=== PATIENT | male | born 1980 | race Caucasian/White ===

== ENCOUNTER 2021-02-12 10:17 | Inpatient (IN) ==
--- NOTE | 2021-01-29 11:18 | Anesthesiology Consultation ---
Date of Service January 29, 2021 Assessment & Plan (1) Encounter for pre-operative examination: COVID screening: Per assessment on 01/29: Travel screen negative, no known COVID- 19 positive contacts or current COVID-19 related symptoms. Surgeon arranging preop COVID testing. Awaiting results. Chart Review Chart Review: Acceptable Risk for Surgery and Patient seen in Pre Admission Testing Teaching & Discussion Pre-Anesthesia Teaching/Discussion Notes: Instructed NPO after midnight before surgery,except medications with 15 cc of water. Medication instructions provided according to the PAT guidelines. History Surgery Operation Date: 02/12/21 10:35 Proposed Procedures p L5-S1 Decompression Fusion, Spinal Cord Monitoring - Vikas Moon, Height/Weight Height: 5 ft 6.5 in Weight: 73.9 kg Allergies Allergy/AdvReac Type Severity Reaction Status Date / Time No Known Allergies Allergy Unverified 01/26/21 09:41 Medications Home Medications Medication Instructions Recorded Confirmed Last Taken No Known Home Medications 08/01/19 01/26/21 Unknown Past Medical History Medical History DDD (degenerative disc disease) Lumbar GERD (gastroesophageal reflux disease) controlled, rare Exercise / Class Metabolic Activity II 4-5 Yardwork/Stairs/Walk up hill (one FS (no CP, no SOB)) Past Family History Family History Other Hypertension Denies family history of Diabetes Past Surgical History Surgical History Hx of arthroscopy of left knee Hx of wisdom tooth extraction Past Anesthesia History No Hx of Anesthesia Complications and No Family Hx of Anesthesia Complications History of PONV No Hx of PONV and No Hx of Motion Sickness Social History Smoking Status: Never smoker Do You Dip or Chew Tobacco: Yes (1 can/2 days > advised none DOS) Hx Alcohol Use: Yes alcohol intake frequency: a few times a month Hx Substance Use: No substance use type: does not use Review of Systems Patient denies chest pain, shortness of breath, dyspnea on exertion, fever, chills, cough, wheezing, palpitations. Physical Exam Vital Signs VITALS BP 120/81 P 91 TEMP 98.8 SP02 96%RA RESP 16 PHYSICAL Full cervical extension range of motion. Full TMJ range of motion. TMD 3 finger breaths Mallampati Score 2 Dentition: intact, + crown Lungs: clear throughout to auscultation Cardiac: regular rate and rhythm, no murmurs noted Spine: normal Extremities: no edema + large andrew (pt advised recommendation to trim/shave prior to surgery. Patient voiced understanding but does not wish to shorten andrew much. Advised patient that anesthesiologist will discuss further AM DOS and may require shortening/shaving of andrew prior to proceeding at their discretion. Patient voiced understanding). Lab Results Anesthesia Preop Results Results Anesthesia Widget: WBC 5.97 K/uL (4.8-10.8) 01/29/21 Hgb 14.9 g/dL (14.0-18.0) 01/29/21 Hct 44.1 % (42-52) 01/29/21 Plt 273 K/uL (130-400) 01/29/21 Na 142 mmol/L (136-145) 01/29/21 K 4.1 mmol/L (3.5-5.1) 01/29/21 Cl 110 mmol/L (98-107) H 01/29/21 CO2 25 mmol/L (21-32) 01/29/21 BUN 12 mg/dl (7-18) 01/29/21 Creat 0.89 mg/dl (0.6-1.4) 01/29/21 Glucose Level 101 mg/dl (70-99) H 01/29/21 PT 10.3 Seconds (9.0-12.0) 01/29/21 PTT 24.2 Seconds (21.0-31.0) 01/29/21 INR 1.0 (0.9-1.1) 01/29/21 Urine Color Yellow 01/29/21 Urine Appearance Clear (Clear) 01/29/21 Urine pH 5.5 (4.5-7.5) 01/29/21 Urine Specific [place] 1.021 (1.000-1.030) 01/29/21 Urine Protein Negative (Negative) 01/29/21 Urine Glucose (UA) Negative (Negative) 01/29/21 Urine Ketones Negative (Negative) 01/29/21 Urine Blood Negative (Negative) 01/29/21 Urine Nitrite Negative (Negative) 01/29/21 Urine Bilirubin Negative (Negative) 01/29/21 Urine Urobilinogen Negative (Negative) 01/29/21 Urine Leukocyte Esterase Negative (Negative) 01/29/21 Blood Type B Positive 01/29/21 Antibody Screen NEGATIVE 01/29/21 Testing Electrocardiogram Date: 01/29/21 NSR at 78bpm. unconfirmed report. Chest X-Ray Date: 01/29/21 Findings: + NAD
[~2021-02-12 10:17] MED LIST: ACETAMINOPHEN 500 MG TAB PO SCH; CeleBREX 200 MG CAP PO SCH; GABAPENTIN 900 MG DOSE PO SCH; LR 15ML/HR IV SCH; ceFAZolin 1000MG 1,000 MG/7.5 ML SYR IV SCH
--- NOTE | 2021-02-12 11:38 | History & Physical Bridge Note ---
Date of Service February 12, 2021 History & Physical Bridge Note I have examined the patient, reviewed the History & Physical and in the interval since the performance of the History & Physical I have noted the following changes of clinical significance: no changes noted
--- NOTE | 2021-02-12 11:39 | History & Physical Report ---
Date of Service February 12, 2021 Assessment & Plan (1) Lumbar disc herniation with radiculopathy: Admission and Anticipated Discharge Date Admission Date: L5-S1 decompression fusion History of Present Illness Chief Complaint: Back and bilateral leg pain Primary Care Provider: Justin Francisco DO This is a 40-year-old male who presents with chronic persistent back and leg pain. Failing since course of nonoperative care is here for surgical intervention. Allergies Allergy/AdvReac Type Severity Reaction Status Date / Time No Known Allergies Allergy Unverified 02/12/21 10:41 Home Medications Medication Instructions Recorded Confirmed Type No Known Home Medications 08/01/19 02/12/21 History Past Med/Surg History Medical History DDD (degenerative disc disease) Lumbar GERD (gastroesophageal reflux disease) controlled, rare Surgical History Hx of arthroscopy of left knee Hx of wisdom tooth extraction Family History Other Hypertension Denies family history of Diabetes Social History Smoking Status: Never smoker Second Hand Exposure: No; Do You Dip or Chew Tobacco: Yes (1 can/2 days > advised none DOS); Tobacco Cessation Education Requested by Patient: No Hx Alcohol Use: Yes Hx Substance Use: No Preferred Language: Nigerian Communication Ability: Effective Supervisor Treating And Pumping Required: No Beliefs That Will Affect Care: None Current Living Situation: Parent Other Information That Helps Us Care for You: No Feels Safe at Home: Yes Safety Concerns: Feels Safe At This Time Physical Exam Physical Exam: Patient is alert and oriented Heart regular in rhythm Lungs clear to auscultation Results & Data ([facility]) Vital Signs (Past 12 Hours) Vital Signs Temp Pulse Resp BP Pulse Ox 02/12/21 10:44 37.2 C 70 16 120/76 96
[2021-02-12] MEDS ORDERED: HYDROmorphone INJ 1 MG/ML SYRINGE IV PRN ×2 (11:42→15:32)
[2021-02-12] MEDS ORDERED: ONDANSETRON INJ 2 MG/ML 2 ML VIAL IV PRN ×2 (11:42→15:32)
[2021-02-12] MEDS ORDERED: ATROPINE SULFATE 0.1 MG/ML 10ML SYR IV PRN (11:42)
[2021-02-12] MEDS ORDERED: MIDAZOLAM HCL 1 MG/ML 2ML VIAL ONE (11:58)
[2021-02-12] MEDS ORDERED: ONDANSETRON INJ 2 MG/ML 2 ML VIAL ONE ×2 (11:58→13:40)
[2021-02-12] MEDS ORDERED: DEXAMETHASONE SOD INJ 4 MG/ML VIAL ONE (11:58)
[2021-02-12] MEDS ORDERED: ROCURONIUM BROMIDE 10 MG/ML 5 ML VIAL IV ONE (11:58)
[2021-02-12] MEDS ORDERED: PROPOFOL IV EMULSION 10 MG/ML 20 ML VIAL IV ONE (11:58)
[2021-02-12] MEDS ORDERED: LIDOCAINE 2% 2 ML VIAL/AMP(20MG/ML) INFIL ONE (11:58)
[2021-02-12] MEDS ORDERED: fentaNYL citrate 100 MCG/2 ML VIAL ONE (11:59)
[2021-02-12] MEDS ORDERED: BUPIVACAINE/EPINEPHRINE 0.5% MPF 1:200,000 30 ML VIAL ONE (12:00)
[2021-02-12] MEDS ORDERED: HYDROmorphone INJ 2 MG/ML SYR/VIAL ONE (12:29)
[2021-02-12] MEDS ORDERED: ceFAZolin 1000MG 1,000 MG/7.5 ML SYR IV ONE (12:35)
[2021-02-12] MEDS ORDERED: FLOSEAL HEMOSTATIC MATRIX 10ML TOP ONE (12:44)
--- NOTE | 2021-02-12 13:45 | Operative Report ---
Post Operative Report Pre & Post Diagnosis Operation Date: 02/12/21 11:45 Pre-Op Diagnosis: Intervertebral Disc Disorders with Radiculopathy Post-Op Diagnosis: Intervertebral Disc Disorders with Radiculopathy I identified the patient and participated in the time-out.: Yes Procedure Operation Date: 02/12/21 11:45 Actual Procedures #1 lumbar decompression with bilateral medial facetectomies and foraminotomies L4-5 and L5-S1. #2 posterior spinal fusion L5-S1. #3 placed posterior instrumentation L5-S1. #4 interbody fusion L5-S1. #5 placement peek cage 13 x 26 mm at L5-S1. #6 placement of locally harvested morselized autograft in the posterior lateral gutters. #7 placement of I factor combined with Vitoss in the interbody space and posterior gutters. Surgeon Vikas Moon, DO Grated [employer] Arsalan Rodriguez Estimated Blood Loss 100 Findings Consistent with Post-Op Diagnosis Specimens None Indications This is a 40-year-old male who presents above-mentioned diagnosis and failed extensive course of nonoperative care is here for the above-mentioned procedure. Description of Procedure Patient was met with identified informed consent obtained. Patient was then taken to the operative suite underwent ablation placed in a prone position the [place] table top Donnie frame. All bony prominences well-padded eyes inspected to ensure no external pressure placed upon the. This point the lumbar spine was prepped and draped no sterile fashion. Sharp dissection with the assistance of Bovie cautery performed down to and exposing the lamina and transverse process of L5 and sacral ala bilaterally. From caudal cephalad fashion complete laminectomy L5 partial laminectomy of L4 and bilateral medial facetectomies and foraminotomies addressing all neural compression. Pedicle screws then placed in L5 and S1 levels bilaterally with assistance of fluoroscopy the proper sized lalo placed. By way of a transforaminal portion right complete discectomy was performed endplates curetted to subcortical any bone and a 13 x 26 mm peek cage filled I factor tapped in position. The rods were then locked in final position bilaterally. The transverse processes of L5 and sacral ala burred to subcortical being bone. I factor combined with vitoss and locally harvested morselized autograft placed in the posterior gutters. 15 round CALVIN drain inserted. The incision was then closed with 1 Vicryl to fascia 2-0 Vicryl subcutaneously and 4 Monocryl for final skin closure. Steri-Strip sterile dressings placed. Patient waken taken PACU stable condition. Please note spinal cord monitoring was utilized at the procedure no changes noted. Karis bourne was present at the entire surgery while the patient positioning complex portions of the surgery and final skin closure. I attest to the content of the Intraoperative Record and any orders documented therein. Any exceptions are noted below.
--- NOTE | 2021-02-12 14:12 | Fluoroscopy Report ---
FL lumbar spine 2-3V CLINICAL HISTORY: L5-S1 DECOMPRESSION/FUSION COMPARISON STUDY: None. FLUOROSCOPY TIME: 26 seconds. FINDINGS: 2 fluoroscopic spot images of the lumbar spine demonstrate posterior decompression fusion a t L5-S1 with pedicle screws and rods. Disc spacers in place. IMPRESSION: Fluoroscopy provided for L5-S1 posterior decompression and fusion. ACT 112: Negative or not required by law. Electronically signed by: Berhane Diaz M.D. 02/12/2021 2:10 PM
--- NOTE | 2021-02-12 14:29 | Anesthesiology Progress Note ---
Date of Service February 12, 2021 Anesthesia Post Procedure Vital Signs Vital Signs: Temp Pulse Resp BP Pulse Ox 02/12/21 10:44 37.2 C 70 16 120/76 96 Transfer of Care Handoff Completed per policy Notes Mental Status: alert / awake / arousable and participated in evaluation Patient Amnestic to Procedure: Yes Nausea / Vomiting: adequately controlled Pain: adequately controlled Airway Patency, RR, SpO2: stable & adequate BP & HR: stable & adequate Hydration State: stable & adequate Anesthetic Complications: no major complications apparent and Pt Satisfied with anesthetic care
[2021-02-12] MEDS ORDERED: ACETAMINOPHEN 500 MG TAB PO PRN (15:32)
[2021-02-12] MEDS ORDERED: LORazepam 0.5 MG TAB PO PRN (15:32)
[2021-02-12] MEDS ORDERED: NALOXONE HCL 0.4 MG/1 ML VIAL/CARP IV PRN (15:32)
[2021-02-12] MEDS ORDERED: DO NOT ADMINISTER PNEUMOCOCCAL VACCINE PRN (15:32)
[2021-02-12] MEDS ORDERED: MAGNESIUM HYDROXIDE SUSP 30 ML UDC PO PRN (15:32)
[2021-02-12] MEDS ORDERED: PROMETHAZINE HCL 12.5 MG in SODIUM CHLORIDE 0.9% 50 ML IV PRN (15:32)
[2021-02-12] MEDS ORDERED: ACETAMINOPHEN 1,000 MG/100 ML VIAL IV PRN (15:32)
[2021-02-12] MEDS ORDERED: LORazepam 0.5 MG/1 ML VIAL IV PRN (15:32)
[2021-02-12] MEDS ORDERED: ALUMINUM/MAGNESIUM SUSP 30 ML UDC PO PRN (15:32)
[2021-02-12] MEDS ORDERED: traMADol HCL 50 MG TABLET PO PRN (15:32)
[2021-02-12] MEDS ORDERED: HYDROmorphone INJ 0.5 MG/0.5 ML SYR IV PRN (15:32)
[2021-02-12] MEDS ORDERED: diphenhydrAMINE Capsule 25 MG CAP PO PRN (15:32)
[2021-02-12] MEDS ORDERED: hydrOXYzine HCl 25 MG TAB PO PRN (15:32)
[2021-02-12] MEDS ORDERED: FAMOTIDINE 20 MG TAB PO PRN (15:32)
[2021-02-12] MEDS ORDERED: DO NOT ADMINISTER FLU VACCINE PRN (15:32)
[2021-02-12] MEDS ORDERED: SOD PHOSPHATE/SOD BIPHOSPHATE ENEMA 132 ML BTL PR PRN (15:32)
[2021-02-12] MEDS ORDERED: ONDANSETRON 4 MG OD TAB PO PRN (15:32)
[2021-02-12] MEDS ORDERED: METOCLOPRAMIDE HCL INJ 5 MG/ML 2 ML VIAL IV PRN (15:32)
[2021-02-12] MEDS: LACTATED RINGER'S 1,000 ML IV SCH (16:38)
[2021-02-12] MEDS: KETOROLAC 30 MG/ML VIAL IV SCH ×2 (16:38→22:10)
[2021-02-12] MEDS: ceFAZolin 2000MG 2,000 MG/15 ML SYR IV SCH (20:28)
[2021-02-12] MEDS: DOCUSATE SODIUM/SENNA 50/8.6MG TAB PO SCH (20:28)
[2021-02-13] MEDS: LACTATED RINGER'S 1,000 ML IV SCH (02:40)
[2021-02-13] MEDS: ceFAZolin 2000MG 2,000 MG/15 ML SYR IV SCH (04:04)
[2021-02-13] MEDS: KETOROLAC 30 MG/ML VIAL IV SCH ×2 (04:04→10:07)
[2021-02-13] MEDS: POLYETHYLENE (MIRALAX) 17 GM PACK PO SCH ×4 (05:29→23:22)
[2021-02-13 06:22] LABS: Hemoglobin 13.3 g/dL (14.0-18.0); Immature Granulocytes # (auto) 0.02 K/uL (0.00-0.02); Immature Granulocytes % (auto) 0.2 %; Lymphocytes # (auto) 1.06 K/uL (1.2-3.4); Lymphocytes % (auto) 8.4 %; Mean Corpuscular Hgb Conc 34.1 g/dL (32-36); Mean Platelet Volume 9.3 fL (7.4-10.4); Monocytes # (auto) 0.79 K/uL (0.11-0.59); Monocytes % (auto) 6.3 %; Neutrophils # (auto) 10.69 K/uL (1.4-6.5); Neutrophils % (auto) 85.1 %; Platelet Count 281 K/uL (130-400); RDW Coefficient of Variation 12.7 % (11.5-14.5); RDW Standard Deviation 40.9 fL (36.4-46.3); Red Blood Count 4.43 M/uL (4.7-6.1); White Blood Count 12.56 K/uL (4.8-10.8)
[2021-02-13 06:48] LABS: BUN Creatinine Ratio 13.4 (10-20); Calcium 8.6 mg/dl (8.5-10.1); Creatinine Clr Calc Pharmacy 111.1 ml/min; Est GFR (African American) 129.1 ml/min; Est GFR (Non-African American) 111.4 ml/min; Potassium 4.2 mmol/L (3.5-5.1)
--- NOTE | 2021-02-13 08:30 | Orthopedic Progress Note ---
Date of Service February 13, 2021 Assessment & Plan (1) Lumbar disc herniation with radiculopathy: Admission and Anticipated Discharge Date Admission Date: February 12, 2021 At this time initiate physical therapy monitor CALVIN output anticipate discharge home in the next few days. Subjective Back pain controlled leg pain improved Physical Exam Physical Exam: Patient is comfortable. Is good strength testing. Results & Data ([facility]) Vital Signs (Past 12 Hours) Vital Signs Temp Pulse Resp BP Pulse Ox 02/13/21 07:32 36.6 C 73 16 122/63 97 02/13/21 03:42 36.7 C 78 16 99/56 L 97 02/12/21 22:33 36.6 C 76 14 108/65 95
[2021-02-13] MEDS: oxyCODONE HCL IR 5 MG TAB (IMMEDIATE RELEASE) PO PRN (19:16)
[2021-02-13] MEDS: DOCUSATE SODIUM/SENNA 50/8.6MG TAB PO SCH (19:16)
[2021-02-14] MEDS: oxyCODONE HCL IR 5 MG TAB (IMMEDIATE RELEASE) PO PRN (05:15)
[2021-02-14] MEDS: POLYETHYLENE (MIRALAX) 17 GM PACK PO SCH ×2 (05:15→12:32)
[2021-02-14] MEDS ORDERED: bisacodyL 10 MG SUPP PR PRN (08:00)
[2021-02-14] MEDS: dexAMETHasone 8 MG in SYRINGE 0 ML IV SCH (08:14)
--- NOTE | 2021-02-14 08:20 | Orthopedic Progress Note ---
Date of Service February 14, 2021 Assessment & Plan (1) Lumbar disc herniation with radiculopathy: This time we will continue physical therapy monitor his CALVIN output anticipate discharge home tomorrow. Admission and Anticipated Discharge Date Admission Date: February 12, 2021 Subjective Back pain controlled leg pain improved Physical Exam Physical Exam: On exam is good strength testing appears comfortable. Results & Data ([facility]) Vital Signs (Past 12 Hours) Vital Signs Temp Pulse Resp BP Pulse Ox 02/14/21 07:40 36.5 C 63 16 104/69 97 02/13/21 22:48 36.7 C 61 16 110/64 94
[2021-02-14] MEDS: DOCUSATE SODIUM/SENNA 50/8.6MG TAB PO SCH (19:12)
[2021-02-15] MEDS: dexAMETHasone 8 MG in SYRINGE 0 ML IV SCH (08:00)
--- NOTE | 2021-02-15 08:02 | Discharge Summary ---
Date of Service February 15, 2021 Admission HPI Per Admitting Provider This is a 40-year-old male who presents with chronic persistent back and leg pain. Failing since course of nonoperative care is here for surgical intervention. Principal Diagnosis Lumbar spinal stenosis Discharge Data Allergies Allergy/AdvReac Type Severity Reaction Status Date / Time No Known Allergies Allergy Unverified 02/12/21 10:41 Procedures Performed Operation Date: 02/12/21 11:45 Actual Procedures p L5-S1 Decompression Fusion, Spinal Cord Monitoring(Not Applicable) - Vikas Moon DO Ordered Studies 02/12/21 07:00 [place] lumbar spine 2-3V Routine Hospital Course (1) Lumbar disc herniation with radiculopathy: Patient went lumbar decompression fusion trial as well as taken to orthopedic for postoperative. Postop day 1 is up and ambulating progressive postop day #2 postoperative 3 pain was well controlled CALVIN drain decreasing probably. Excellent strength testing. Subsequent discharge home. Discharge orders instructions from the chart for further view. Total Time Total Time Spent Total Time Spent (In Minutes): 20 minutes Discharge Plan Discharge Items Patient Disposition: Home - Self-Care Reason For Visit: Intervertebral Disc Disorders with Radiculopathy Discharge Diagnosis: Lumbar disc herniation with radiculopathy Activity: As commented below Non-emergency contact: Primary Care Provider Call non-emergency contact if: you have any medication questions Follow-up/Referrals: Justin Francisco DO [Primary Care Provider] - Diet: Regular Addtl Attending Provider Instructions: ACTIVITY RECOMMENDATIONS: SELF CARE INSTRUCTIONS AFTER THORACIC/LUMBAR FUSIONS 1. You may walk to your tolerance. It is good exercise for your legs and back. Expect some back and intermittent leg aches and pains. 2. You may perform "counter-top" level activities (make a sandwich, larry with a project, etc.). 3. No bending or lifting of more than 10 pounds or back twisting of any nature (roll like a log when turning in bed). 4. You may ride in a car for 20-30 minutes at a time. No driving until after your first visit with your doctor. 5. Frequent changes of position and restricting sitting to 30 minutes at a time will help limit the amount of back spasms and stiffness you may experience. 6. You may discontinue the use of ambulatory aids (cane, crutches, etc.) once your strength and confidence allow. 7. You may marketing team lead the shower and let water strike your incision when you arrive home at least once daily. Do not take a tub bath, sit in a hot tub or go into a swimming pool until after your first recheck in the office. SPECIAL CARE INSTRUCTIONS: VERY IMPORTANT TO READ AND REVIEW A. Your surgical incision has been closed with a cosmetic suture under the skin that will dissolve in about 6 weeks. In 14 days, you can use a pair of clean scissors and cut the suture that is left outside of the skin at the ends of your incision. 1. The small skin tapes can be removed 7 days after surgery if they have not fallen off by that point. 2. You may keep the wound open to air as much as possible to promote healing after post-op day number 5 unless told otherwise by your doctor. 3. If you think the wound looks like it is becoming infected (redness or worsening drainage) and/or you are experiencing fever, chill or worsening back pain and muscle spasms, contact the office so that we may evaluate you as soon as possible. B. Complications are uncommon, but please contact us if you have any signs or s ymptoms of: 1. wound infection (fever higher than 102.5 degrees F, redness, separation of wound, drainage, or increasing pain from the incision) 2. blood clots in legs (pain, swelling, redness and warmth in legs) 3. urinary tract infection (fever higher than 102.5 degrees F, burning upon urination or increased frequency of urination) 4. nerve problems (inability to walk on your toes or heels, numbness, loss of bowel or bladder control) 5. any other symptoms that concern you C. Please call the office at if you have any concerns or questions about your operation or recovery. D. No smoking! Smoking drastically decreases the chance of a solid fusion. E. Do not take any anti-inflammatory medications (Indocin, Advil, Motrin, Aspirin, Naprosyn, etc.) as these may inhibit the chance of a solid fusion. Tylenol is okay to take for pain. MANAGING PAIN AFTER SPINAL SURGERY 1. Narcotic medication is intended for short-term use and will be provided for surgical pain. Surgical pain usually lasts for a period of 4-6 weeks. Narcotic medication includes Percocet, Vicodin, Darvocet, Tylenol #3 or Lortab. 2. Longer-term pain is more appropriately treated with non-narcotic medication such as Tylenol ES. 3. Muscle spasm is not appropriately treated with narcotics. Muscle relaxers such as Soma, Flexeril or Skelaxin can be used along with Tylenol ES. 4. Remember that we all live with some "aches and pains". This is not unusual or uncommon after an injury or as we get older. a. Back pain is expected and may include muscle spasms for 4 to 6 weeks after surgery. The pain should gradually improve. If the pain worsens for no apparent reason, please contact the office. b. Intermittent leg pain may also be experienced and should not be concerned about unless it worsens for no apparent reason. If so, please contact the office. 5. We will provide appropriate medication within the normal guidelines of their prescribed use. We will also be very cautious and aware of potential abuse and extended duration of patients' medication needs. a. Pain medications are for your comfort and to assist with sleep and rest so that the tissue can heal. They are not provided in order to return to normal activity and should not be used through the day. To do so or worsening pain at night can result from ongoing tissue damage and development of tolerance to the prescribed medicine. 6. Please allow 2-3 days to process refills. Prescriptions will not be mailed but must be picked up at the office. FOLLOW UP VISIT: Keep your scheduled follow-up appointment. Any questions, please call the office at . Pending Studies at Discharge: No Stand-Alone Forms: [facility], Opioid Pain Management, Smoking Cessation Medications and DC Order Prescriptions: New tramadol 50 mg tablet 50 mg PO Q6H PRN (Reason: pain, moderate) Qty: 30 RF: 0 oxycodone 5 mg tablet 5 mg PO Q6H PRN (Reason: pain, severe) Qty: 30 RF: 0 No Action No Known Home Medications RF: 0 Discharge Orders: Discharge Order (Routine); Ordered 02/15/21 Ordered By: Vikas Moon Admission Data Admit Date/Time: 02/12/21 14:18 Attending Provider: Vikas Moon Admit Provider: Vikas Moon Primary Care Provider: Maryam,Justin Other Interventions: Discharge Summary Assessment (RN) Last Done: 02/15/21 09:50
== END 2021-02-15 10:45 | disposition home or self-care (01) | DRG 455 ==
LOC: ASU 10:17 → 3E 14:18